=== PATIENT | male | born 1975 | race Caucasian/White ===

== ENCOUNTER → 2016-11-26 | Outpatient (CLI) | payer OTHER ==
[~2016-11-26] MED LIST: ACET500C; ADDE10CA PO; DEPA500T2 PO; EFFE150C PO; FLOM5CAP PO; NALT50TA4 PO; PAXI40TA2 PO; SUBO4MIS SL; TIZA4CAP3 PO; TRAM50TA2 OR; TYLE325T5 PO; TYLE650T30 PO; ULTRTA; VARE1TA; VICO5TAB OR; VITA200028 PO
--- NOTE | 2016-11-26 13:19 | REP ---
CT LUMBAR SPINE WITHOUT CONTRAST: 11/26/2016. Comparison: MRI 10/23/2015, CT 06/18/2013. 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 Degenerative disc disease lumbar spine. Back pain. Status post lumbar fusion. Technique: Axial soft-tissue and bone windows with coronal and sagittal bone reconstructions. Angled axial images through the lower lumbar discs. Findings: A at the gentle lumbar lordosis is maintained with straightening of the spine and the upper lumbar and lower thoracic region. All of this appears stable. There is disc space narrowing at L five - S1 small posterior osteophytes are seen. The bilateral pedicle screws at L5 and S1 with associated arch bars are noted. Disc spaces maintain height between L5 and S1 unchanged. The disc space heights are preserved. Vertebral body heights are superb cervix throughout the lumbar and lower thoracic levels. At T10-11, T11-12, T12-L1, L1-2 and L2-3 disc levels. There is no disc bulge herniation and no spinal or foraminal stenosis. No destructive lesion of bone seen. At L3-L4 there was no significant disc bulge herniation and no spinal or foraminal stenosis. At L4-L5 there is a mild broad-based disc bulge abutting the ventral thecal sac and flattening it but not causing central canal stenosis. Facet and ligamentum flavum hypertrophic changes are noted. Cross-sectional area of the canal was adequate. The foramina are adequate. At L5-S1 the disc space is narrowed with a disc spacer visible pedicle screws at L5 and S1 were intact with no hardware failure, arch bars are also maintaining integrity. There has been a prior L5 laminectomy. No central canal stenosis. Foramina are ample. That portion of the sacral ala and foramina symmetric and normal. Visualized portion of SI joints intact. Impression: 1. Status post lumbar fusion with pedicle screws and arch bars at L5 - S1 intact disc spacer at the disc level with disc space narrowing, all of this unchanged from the prior study 10/23/2015 MRI. Also unchanged from CT 06/18/2013. 2. The L4-5 level and above show disc spaces maintained. Vertebral body heights are normal and unremarkable throughout. No other significant finding with central canal stenosis. The cross-sectional area at L5-S1 remains adequate. Stable examination. Signed by Jose Hu MD 11/26/2016 01:10 P
== END ==
LOC: M RAD 11:20
PROVIDERS: ATTEND Orthopaedic Surgery
DX: M47.816 Spondylosis without myelopathy or radiculopathy, lumbar region (principal); M51.36 Other intervertebral disc degeneration, lumbar region

== ENCOUNTER → 2017-08-25 | Outpatient (CLI) | payer OTHER ==
[~2017-08-25] MED LIST changes: -ADDE10CA PO; +ADDE10CA3 PO; +PAXI40TA10 PO; -PAXI40TA2 PO
== END ==
LOC: M OUTALCOH 07:45
PROVIDERS: ATTEND Psychiatry & Neurology Psychiatry
DX: F10.20 Alcohol dependence, uncomplicated (principal)

== ENCOUNTER 2017-09-03 15:49 | Outpatient (RCR) | payer OTHER | END 2017-09-14 | LOC: M OUTALCOH 15:49 | DX: F10.20 Alcohol dependence, uncomplicated (principal) ==

== ENCOUNTER 2017-09-18 10:25 | Outpatient (RCR) | payer OTHER | END 2017-10-15 | LOC: M OUTALCOH 10:25 | DX: F10.20 Alcohol dependence, uncomplicated (principal) ==

== ENCOUNTER → 2017-09-26 | Outpatient (REF) | payer OTHER, MEDICAID | LOC: M LAB REF 12:23 | DX: F19.11 Other psychoactive substance abuse, in remission (principal) ==

== ENCOUNTER → 2017-10-03 | Outpatient (REF) | payer OTHER, MEDICAID | LOC: M LAB REF 16:37 | DX: F19.11 Other psychoactive substance abuse, in remission (principal) ==

== ENCOUNTER → 2017-10-10 | Outpatient (REF) | payer OTHER, MEDICAID | LOC: M LAB REF 17:18 | DX: F19.11 Other psychoactive substance abuse, in remission (principal) ==

== ENCOUNTER → 2017-10-17 | Outpatient (REF) | payer OTHER, MEDICAID | LOC: M LAB REF 19:05 | DX: F19.11 Other psychoactive substance abuse, in remission (principal) ==

== ENCOUNTER → 2017-10-24 | Outpatient (REF) | payer OTHER, MEDICAID | LOC: M LAB REF 12:57 | DX: F19.11 Other psychoactive substance abuse, in remission (principal) ==

== ENCOUNTER → 2017-10-30 | Outpatient (REF) | payer OTHER, MEDICAID | LOC: M LAB REF 12:43 | DX: F19.11 Other psychoactive substance abuse, in remission (principal) | CPT/HCPCS: 80362 ==

== ENCOUNTER → 2017-11-06 | Outpatient (REF) | payer OTHER, MEDICAID ==
[2017-11-08 08:06] LABS: AMPHETAMINE SCREEN, URINE Negative ng/mL (Cutoff=1000); BARBITURATES SCREEN, URINE Negative ng/mL (Cutoff=200); BENZODIAZEPINES, URINE SCREEN Negative ng/mL (Cutoff=200); CANNABINOID SCREEN, URINE Negative ng/mL (Cutoff=20); COCAINE SCREEN, URINE Negative ng/mL (Cutoff=300); CREATININE, URINE 92.1 mg/dL (20.0-300.0); FENTANYL URINE SCREEN Negative pg/mL (Cutoff=2000); METHADONE, URINE SCREEN Negative ng/mL (Cutoff=300); OPIATE SCREEN, URINE Negative ng/mL (Cutoff=300); OXYCODONE, SCREEN, URINE Negative ng/mL (Cutoff=100); PCP SCREEN, URINE Negative ng/mL (Cutoff=25); SPECIFIC GRAVITY, URINE 1.008 (.); pH, URINE 5.4 (4.5-8.9)
== END ==
LOC: M LAB REF 16:47
DX: F19.11 Other psychoactive substance abuse, in remission (principal)
CPT/HCPCS: 80307

== ENCOUNTER → 2017-11-13 | Outpatient (REF) | payer OTHER, MEDICAID ==
[2017-11-13 18:55] LABS: ALBUMIN/GLOBULIN RATIO 1.43 (1.00-1.93); ALKALINE PHOSPHATASE 77 U/L (45-117); ALT/SGPT 25 U/L (12-78); ANION GAP 6 MEQ/L (8-16); AST/SGOT 21 U/L (7-37); BILIRUBIN,TOTAL 0.2 MG/DL (0.2-1.0); BLOOD UREA NITROGEN 9 MG/DL (7-18); CALCIUM LEVEL 8.7 MG/DL (8.5-10.1); CARBON DIOXIDE LEVEL 31 MEQ/L (21-32); CHLORIDE LEVEL 105 MEQ/L (98-107); CREATININE FOR GFR 0.88 MG/DL (0.70-1.30); GLOMERULAR FILTRATION RATE > 60.0 (>60); GLUCOSE, FASTING 80 MG/DL (70-100); MAGNESIUM LEVEL 2.3 MG/DL (1.8-2.4); POTASSIUM SERUM 4.3 MEQ/L (3.5-5.1); SODIUM LEVEL 142 MEQ/L (136-145); TOTAL PROTEIN 6.8 GM/DL (6.4-8.2)
== END ==
LOC: M LAB REF 16:36
DX: F19.11 Other psychoactive substance abuse, in remission (principal)
CPT/HCPCS: 80362

== ENCOUNTER → 2017-11-20 | Outpatient (REF) | payer OTHER, MEDICAID | LOC: M LAB REF 16:49 | DX: F19.11 Other psychoactive substance abuse, in remission (principal) ==

== ENCOUNTER → 2017-11-27 | Outpatient (REF) | payer OTHER, MEDICAID ==
[2017-11-30 00:09] LABS: AMPHETAMINE SCREEN, URINE Negative ng/mL (Cutoff=1000); BARBITURATES SCREEN, URINE Negative ng/mL (Cutoff=200); BENZODIAZEPINES, URINE SCREEN Negative ng/mL (Cutoff=200); CANNABINOID SCREEN, URINE Negative ng/mL (Cutoff=20); COCAINE SCREEN, URINE Negative ng/mL (Cutoff=300); CREATININE, URINE 24.7 mg/dL (20.0-300.0); FENTANYL URINE SCREEN Negative pg/mL (Cutoff=2000); METHADONE, URINE SCREEN Negative ng/mL (Cutoff=300); OPIATE SCREEN, URINE Negative ng/mL (Cutoff=300); OXYCODONE, SCREEN, URINE Negative ng/mL (Cutoff=100); PCP SCREEN, URINE Negative ng/mL (Cutoff=25); SPECIFIC GRAVITY, URINE 1.005 (.)
== END ==
LOC: M LAB REF 17:12
DX: F19.11 Other psychoactive substance abuse, in remission (principal)

== ENCOUNTER → 2017-12-11 | Outpatient (REF) | payer OTHER, MEDICAID | LOC: M LAB REF 17:19 | DX: F19.11 Other psychoactive substance abuse, in remission (principal) ==

== ENCOUNTER → 2018-01-14 | Outpatient (REF) | payer OTHER, MEDICAID | LOC: M LAB REF 17:56 | DX: F19.11 Other psychoactive substance abuse, in remission (principal) ==

== ENCOUNTER → 2018-02-04 | Outpatient (REF) | payer OTHER, MEDICAID ==
[2018-02-12 10:13] LABS: AMPHETAMINE SCREEN, URINE Negative ng/mL (Cutoff=1000); BARBITURATES SCREEN, URINE Negative ng/mL (Cutoff=200); BENZODIAZEPINES, URINE SCREEN Negative ng/mL (Cutoff=200); CANNABINOID SCREEN, URINE Negative ng/mL (Cutoff=20); COCAINE SCREEN, URINE Negative ng/mL (Cutoff=300); CREATININE, URINE 74.5 mg/dL (20.0-300.0); FENTANYL URINE SCREEN Negative pg/mL (Cutoff=2000); METHADONE, URINE SCREEN Negative ng/mL (Cutoff=300); NALOXONE RESULT Positive (.); OPIATE SCREEN, URINE Negative ng/mL (Cutoff=300); OXYCODONE, SCREEN, URINE Negative ng/mL (Cutoff=100); PCP SCREEN, URINE Negative ng/mL (Cutoff=25); SPECIFIC GRAVITY, URINE 1.015 (.); URINE BUPRENORPHINE Positive (.); URINE BUPRENORPHINE Positive (Cutoff=10); URINE BUPRENORPHINE See Final Results ng/mL (Cutoff=10); URINE BUPRENORPHINE CONFIRM 170 ng/mL (Cutoff=10); URINE NORBUPRENORPHINE Positive (.); URINE NORBUPRENORPHINE CONFIRM 980 ng/mL (Cutoff=10); pH, URINE 6.1 (4.5-8.9)
== END ==
LOC: M LAB REF 16:44
DX: F19.11 Other psychoactive substance abuse, in remission (principal)

== ENCOUNTER → 2020-05-26 | Outpatient (CLI) | payer OTHER ==
[~2020-05-26] MED LIST changes: -EFFE150C PO; +EFFE150C2 PO; +FLOM0.4C39 PO; -FLOM5CAP PO; +TIZA4CAP PO; -TIZA4CAP3 PO
--- NOTE | 2020-06-15 08:40 | REP ---
LIMITED PELVIC ULTRASOUND: CLINICAL: Right groin pain. TECHNIQUE: Real time, rangel scale and color Doppler evaluation using linear high frequency transducer. FINDINGS: Ultrasound examination demonstrates no evidence for inguinal hernia. Pain and palpable mass corresponds to a normal-appearing lymph node at the right groin measuring approximately 21 x 8 x 3 mm. The left inguinal region was evaluated for comparison and demonstrate no hernia or adenopathy. IMPRESSION: 1. No evidence for inguinal hernia. 2. Palpable mass and pain corresponds to a single normal-appearing lymph node in the right groin. MTDD
== END ==
LOC: M RAD 06:28
PROVIDERS: ATTEND Family Medicine Addiction Medicine
DX: K40.90 Unilateral inguinal hernia, without obstruction or gangrene, not specified as recurrent (principal)

== ENCOUNTER → 2022-01-01 | Outpatient (REF) | LOC: M PLAIMG 15:40 | PROVIDERS: ATTEND Internal Medicine | DX: Z00.00 Encounter for general adult medical examination without abnormal findings (principal) ==

== ENCOUNTER → 2024-05-18 | Outpatient (CLI) | payer OTHER ==
[~2024-05-18] MED LIST changes: -EFFE150C2 PO; +EFFE150C3 PO; -PAXI40TA10 PO; +PAXI40TA12 PO
== END ==
LOC: M WUC 11:55
PROVIDERS: ATTEND Family Medicine Addiction Medicine
DX: M54.2 Cervicalgia (principal)

== ENCOUNTER 2024-09-06 10:00 | Outpatient (RCR) | payer OTHER | END 2024-09-14 | LOC: M PT 10:00 | PROVIDERS: ATTEND Family Medicine Addiction Medicine | DX: M54.2 Cervicalgia (principal) ==

== ENCOUNTER → 2025-06-30 | Outpatient (REF) | payer OTHER ==
[~2025-06-30] MED LIST changes: -FLOM0.4C39 PO; +TAMS-18 PO
[2025-06-30 15:08] LABS: CALCIUM LEVEL 8.8 MG/DL (8.5-10.1); CARBON DIOXIDE LEVEL 27 MMOL/L (20-31); CHLORIDE LEVEL 103 MMOL/L (98-107); CREATININE FOR GFR 0.89 MG/DL (0.70-1.30); GLOMERULAR FILTRATION RATE > 90.0 (>60); POTASSIUM SERUM 3.7 MMOL/L (3.5-5.1); SODIUM LEVEL 141 MMOL/L (136-145)
== END ==
LOC: M LAB REF 14:24
PROVIDERS: ATTEND Family Medicine Addiction Medicine
DX: I10 Essential (primary) hypertension (principal)